=== PATIENT | male | born 1965 | race Caucasian/White ===

== ENCOUNTER 2018-02-13 14:05 | Emergency (ER) | payer BC, OTHER ==
[~2018-02-13] VITALS: Ht 190.5 cm; Wt 89.1 kg
[2018-02-13 14:11] VITALS: TEMP 36.9; Ht 190.5 cm; Wt 89.1 kg
[2018-02-13] MEDS ORDERED: VARE1PAK15 PO (14:24)
[2018-02-13] MEDS ORDERED: LEVO50TA6 PO (14:24)
--- NOTE | 2018-02-13 14:37 | EMERGENCY ROOM VISIT NOTE ---
History Report prepared by Julius: Dylon Rogers Under the Supervision of: Dr. Eleno Wilson M.D. First contact with patient: 14:26 Chief Complaint: OTHER COMPLAINT Stated Complaint: PAIN IN RIGHT SIDE History of Present Illness The patient is a 52 year old male who presents to the Emergency Room with complaints of constant right chest and back pain beginning today. The patient states that he was moving house furniture today when he started feeling pain. He notes that he is also experiencing pain in his right upper back and right flank. He reports that his pain worsens when he takes a deep breath and when he moves. He denies any falls and states that none of the furniture fell on him. The patient notes that he has problems with his thyroid. Source of History: patient Onset: today Position: chest (right) Timing: constant Modifying Factors (Worsening): breathing (deep breathing), movement Associated Symptoms: + back pain (right upper back ) Note: The patient also complains of right flank pain. Review of Systems See HPI for pertinent positives and negatives. A total of ten systems were reviewed and were otherwise negative. Past Medical & Surgical Medical Problems: (1) HNP (herniated nucleus pulposus) (2) Tobacco use disorder Family History FH: diabetes mellitus FH: seizures Social History Smoking Status: Current Every Day Smoker Alcohol Use: none Drug Use: none Marital Status: Housing Status: lives with family Occupation Status: employed Current/Historical Medications Scheduled Levothyroxine Sodium (Levothyroxine Sodium), 1 TAB PO DAILY Varenicline Tartrate (Chantix Starting Month Pa), 1 DOSE PO UD Scheduled PRN Cyclobenzaprine Hcl (Flexeril), 5 MG PO TID PRN for Pain Ibuprofen Tab (Motrin), 800 MG PO Q8H PRN for Pain Allergies Coded Allergies: No Known Allergies (Unverified , 07/29/16) Physical Exam Vital Signs Date Time Temp Pulse Resp B/P (MAP) Pulse Ox O2 Delivery O2 Flow Rate FiO2 02/13/18 16:57 62 16 106/65 95 02/13/18 15:54 58 18 99/55 97 Room Air 02/13/18 14:11 36.9 69 18 115/72 95 Room Air Physical Exam Physical Exam GENERAL: He is oriented to person, place, and time. He appears well-developed and well-nourished. He does not appear distressed. HENT: Exam performed. Head: Normocephalic and atraumatic. Right Ear: External ear normal. No mastoid tenderness. Left Ear: External ear normal. No mastoid tenderness. Mouth/Throat: The oropharynx is clear and moist. No trismus in the jaw. No dental abscesses or uvula swelling. No oropharyngeal exudate or tonsillar abscesses. EYES: Conjunctivae and EOM are normal. Pupils are equal, round, and reactive to light. Right eye exhibits no discharge. Left eye exhibits no discharge. No scleral icterus. NECK: Normal range of motion. Neck supple. No JVD present. No spinous process tenderness present. No carotid bruit present. No rigidity. No tracheal deviation and normal range of motion present. No Brudzinski's sign and no Kernig 's sign noted. CV: Normal rate, regular rhythm, normal heart sounds and intact distal pulses. There is no peripheral edema. Palpable radial pulses bue. PULM/CHEST: Effort normal and breath sounds normal. No respiratory distress. No stridor. He has no wheezes. He has no rales. Chest Wall: He exhibits no tenderness. ABD: The abdomen is soft. Bowel sounds are normal. He has no distension. No mass is present. There is no tenderness. There is no rebound, no guarding, no Fleming's sign and no tenderness at McBurney's point. Rovsig negative MUSC/SKEL: Normal range of motion. There is no peripheral edema or deformity. No C T or L spine tenderness, pain on palpation and spasms on palpation reproducing the patient's chief complaint, pain on palpation of right thoracic paraspinous muscle. LYMPH: No cervical adenopathy. NEURO: He is alert and oriented to person, place, and time. He has normal strength. No cranial nerve deficit or sensory deficit. Coordination and gait normal. GCS eye subscore is 4. GCS verbal subscore is 5. GCS motor subscore is 6. Cerebellar tests wnl. SKIN: Skin is warm and dry. He is not diaphoretic. PSYCH: He has a normal mood and affect. His behavior is normal. Judgment and thought content normal. Medical Decision & Procedures ER Provider Diagnostic Interpretation: Radiology results as stated below per my review and radiologist interpretation: TWO VIEW CHEST FINDINGS: PA and lateral chest radiographs are compared to study dated 07/29/2016. The heart is top normal for projection and there is atherosclerotic calcification of the thoracic aorta. The pulmonary vasculature is noncongested. Chronic interstitial thickening is similar to previous. No airspace consolidation or pleural effusion is identified. No pneumothorax is seen. The bony thorax appears intact. IMPRESSION: No acute cardiopulmonary abnormality. Electronically signed by: Tor Hanley M.D. 02/13/2018 3:38 PM ED Course 1431: The patient was evaluated in room C7. A complete history and physical exam was performed. 1651: Vital signs stable x-ray negative. DC with analgesia and muscle relaxer. DISCHARGE - Plan of care discussed with patient and questions answered. The patient was given both verbal and printed discharge instructions. The patient verbalized understanding and ability to comply. The patient is to seek outpatient follow up as noted in the discharge instructions. The patient verbalized understanding and ability to comply. The patient is discharged in stable condition. The patient was instructed to return for worsening symptoms. Medical Decision Vital signs stable x-ray negative. DC with analgesia and muscle relaxer. DISCHARGE - Plan of care discussed with patient and questions answered. The patient was given both verbal and printed discharge instructions. The patient verbalized understanding and ability to comply. The patient is to seek outpatient follow up as noted in the discharge instructions. The patient verbalized understanding and ability to comply. The patient is discharged in stable condition. The patient was instructed to return for worsening symptoms. Blood Pressure Screening Patient's blood pressure: Normal blood pressure Blood pressure disposition: Did not require urgent referral Impression Primary Impression: Back strain Scribe Attestation The scribe's documentation has been prepared under my direction and personally reviewed by me in its entirety. I confirm that the note above accurately reflects all work, treatment, procedures, and medical decision making performed by me. The chart was completed utilizing [employer] Speech voice recognition software. Grammatical errors, random word insertions, pronoun errors, and incomplete sentences are an occasional consequence of this system due to software limitations, ambient noise, and hardware issues. Any formal questions or concerns about the content, text, or information contained within the body of this dictation should be directly addressed to the physician for clarification. Departure Information Dispostion Home / Self-Care Prescriptions Cyclobenzaprine Hcl (FLEXERIL) 5 Mg Tab 5 MG PO TID Y for Pain, #30 TAB PRN Prov: Eleno Wilson M.D. 02/13/18 Ibuprofen Tab (MOTRIN) 800 Mg Tab 800 MG PO Q8H Y for Pain, #30 TAB Prov: Eleno Wilson M.D. 02/13/18 Referrals Vashti Hopkins M.D. (PCP) Forms HOME CARE DOCUMENTATION FORM, IMPORTANT VISIT INFORMATION, WORK / SCHOOL INSTRUCTIONS Patient Instructions [facility] Health Problem Qualifiers Primary Impression: Back strain Encounter type: initial encounter Qualified Codes: S39.012A - Strain of muscle, fascia and tendon of lower back, initial encounter
--- NOTE | 2018-02-13 15:40 | DIAGNOSTIC IMAGING REPORT ---
TWO VIEW CHEST CLINICAL HISTORY: Atypical chest pain. FINDINGS: PA and lateral chest radiographs are compared to study dated 07/29/2016. The heart is top normal for projection and there is atherosclerotic calcification of the thoracic aorta. The pulmonary vasculature is noncongested. Chronic interstitial thickening is similar to previous. No airspace consolidation or pleural effusion is identified. No pneumothorax is seen. The bony thorax appears intact. IMPRESSION: No acute cardiopulmonary abnormality. Electronically signed by: Tor Hanley M.D. 02/13/2018 3:38 PM Dictated Date/Time: 02/13/2018 3:36 PM
[2018-02-13] MEDS ORDERED: IBUP-1451 PO (16:49)
[2018-02-13] MEDS ORDERED: CYCL5TAB PO (16:49)
[2018-02-13 16:57] VITALS: BP 106/65; PULSE 62; O2SAT 95
== END 2018-02-13 16:58 | disposition home or self-care (01) ==
LOC: C.EDB 14:06 → C.EDC 16:58
DX: S39.012A Strain of muscle, fascia and tendon of lower back, initial encounter (principal); R07.9 Chest pain, unspecified; E07.9 Disorder of thyroid, unspecified; Z79.899 Other long term (current) drug therapy; Z82.0 Family history of epilepsy and other diseases of the nervous system; Z83.3 Family history of diabetes mellitus; F17.200 Nicotine dependence, unspecified, uncomplicated; X50.0XXA Overexertion from strenuous movement or load, initial encounter

== ENCOUNTER 2023-10-08 08:22 | Observation (INO) ==
--- OUTSIDE RECORDS SUMMARY | 2023-10-08 08:29 | External Medical Summary | Summary of Care ---
Author Name Unknown Organization [facility] Address [address] [place] [address] Phone [phone] Care Team Providers Care Barrel Raiser Name Role Phone Vashti Hopkins MD Primary Care Provider [phone] Reason for Visit * Reason Comments Physical-Exam Follow Up Encounter Details Date Type Department Care Team Description 06/10/2023 Office Visit General Internal Medicine [facility] [address] [facility] [place], [place] [id number] Vashti Hopkins MD [address] [place] [address] Routine medical exam*; Left foot pain; Hyperlipidemia with target LDL less than 100; 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; HNP (herniated nucleus pulposus), cervical; Atherosclerosis of arteries; Lipoma of head; Neuropathy involving both lower extremities; Pernicious anemia; Syrinx of spinal cord (HCC); Tobacco use disorder; Unilateral inguinal hernia without obstruction or gangrene, recurrence not specified; Pulmonary emphysema, unspecified emphysema type (HCC); Screening PSA (prostate specific antigen); Encounter for HCV screening test for low risk patient Allergies No known active allergiesdocumented as of this encounter (statuses as of 06/10/2023) Medications Medication Sig Dispensed Refills Start Date End Date Status Vitamin B-12 ER 2000 MCG Oral Tablet Extended ReleaseIndication s:Other vitamin B12 deficiency anemia Take by mouth. 2500 mcg 0 07/11/2021 Active Atorvastatin Calcium 20 MG Oral Tablet (Lipitor)Indicati ons:Hyperlipidemi a with target LDL less than 100 Take 1 Tablet (20 mg) by mouth in the morning. 30 Tablet 5 09/23/2022 Active Levothyroxine Sodium 50 MCG Oral Tablet (Levoxyl)Indicati ons:Hypothyroidis m due to Sonia's thyroiditis Take 1 Tablet (50 mcg) by mouth in the morning. (at least 30 min prior to breakfast or other meds). 30 Tablet 5 09/23/2022 Active Baclofen 10 MG Oral Tablet (Lioresal)Indicat ions:Neck pain Take 1 Tablet (10 mg) by mouth in the morning and 1 Tablet (10 mg) before bedtime. 30 Tablet 0 09/26/2022 Active Pantoprazole Sodium 20 MG Oral Tablet Delayed Release (Protonix) Take 1 Tablet by mouth in the morning. 90 Tablet 2 11/27/2022 Active Meloxicam 15 MG Oral Tablet Take 1 Tablet by mouth daily as needed for Pain, Mild or Pain, Moderate. for pain. 30 Tablet 2 12/11/2022 Active Aspirin 81 MG Oral Tablet Chewable Take 1 Tablet by mouth in the morning. with food.. 100 Tablet 5 12/11/2022 Active buPROPion HCl ER (SR) 150 MG Oral Tablet Extended Release 12 Hour (Wellbutrin SR)Indications:To bacco use disorder Take 1 Tablet by mouth in the morning and 1 Tablet before bedtime. 60 Tablet 5 06/10/2023 Active Nicotine 7 MG/24HR Transdermal Patch 24 Hour (Nicoderm CQ)Indications:To bacco use disorder One 7 mg patch daily for 2 weeks; Remove old patch daily; and then stop. 14 Patch 1 06/10/2022 06/10/2023 Discontinue d(Medicatio n List Clean Up) buPROPion HCl ER (SR) 100 MG Oral Tablet Extended Release 12 Hour (Wellbutrin SR)Indications:To bacco use disorder Take 1 Tablet by mouth in the morning and 1 Tablet before bedtime. 60 Tablet 5 12/11/2022 06/10/2023 Discontinue d(Medicatio n/Dose Changed) Hospital, Clinic, or Other Facility Administered Medication Ordered Dose Route Frequency Start Date End Date Status Albuterol Sulfate (Proventil) (2.5 MG/3ML) 0.083% inhalation solution 2.5 mgIndications:Tobacco use disorder,Pulmonary emphysema, unspecified emphysema type (HCC) 2.5 mg NEBULIZER PRN 06/10/2023 06/09/2024 Acti ve albuterol (VENTOLIN HFA/PROVENTIL HFA) inhalerIndications:Toba junior accountant bookkeeper use disorder,Pulmonary emphysema, unspecified emphysema type (HCC) 3 Puff IN PRN 06/10/2023 06/09/2024 Acti ve documented as of this encounter (statuses as of 06/10/2023) Active Problems Problem Noted Date Atherosclerosis of arteries 12/11/2022 Hyperlipidemia with target LDL less than 100 09/22/2022 Lipoma of head 10/11/2021 Pernicious anemia 10/09/2017 Hypothyroidism due to Sonia's thyroi ditis 10/01/2016 Neuropathy involving both lower extremit ies 08/13/2016 Syrinx of spinal cord 03/27/2015 Overview: Small area at the cervicomedullary junction, repeat MRI 3 months, too small to characterize HNP (herniated nucleus pulposus), cervic al 03/05/2015 Tobacco use disorder 06/20/2004 UNILAT INGUINAL HERNIA 12/14/2003 documented as of this encounter (statuses as of 06/10/2023) Resolved Problems Problem Noted Date Resolved Date H/O idiopathic seizure 06/10/2022 3 Overview: Cause now known only 1 time - in 1984 Jerking movements of extremities 04/29/2017 01/26/2018 Dizzy spells 08/13/2016 07/22/2021 documented as of this encounter (statuses as of 06/10/2023) Immunizations Name Administration Dates Next Due PPD 07/01/2017 Pneumococcal Conjugate Vaccine, 20-valent (Prevn ar20) 06/10/2022 TD, Preservative Free 10/11/2021 TDAP (age 11 and older)(Adacel) 08/08/2011 documented as of this encounter Social History Tobacco Use Types Packs/Day Years Used Date Smoking Tobacco: Every Day Cigarettes 1 30 Started: 1987 Smokeless Tobacco: Never Alcohol Use Standard Drinks/Week Comments Yes 0 (1 standard drink = 0.6 oz pur e alcohol) occ beer, rare Food Insecurity Answer Date Recorded Within the past 12 months, y ou worried that your food would run out before you got money to buy more. Never true 12/11/2022 Within the past 12 months, t he food you bought just didn't last and you didn't have money to get more. Never true 12/11/2022 Sex Assigned at Date Recorded Not on file Job Start Date Occupation Industry Not on file Not on file Not on file documented as of this encounter Last Filed Vital Signs Vital Sign Reading Time Taken Comments Blood Pressure 104/62 06/10/2023 8:58 AM EDT Pulse 90 06/10/2023 8:58 AM EDT Temperature 36.7 C (98 F) 06/10/2023 8:58 AM EDT Respiratory Rate - - Oxygen Saturation 92% 06/10/2023 8:58 AM EDT Inhaled Oxygen Concentration - - Weight 89.8 kg (198 lb) 06/10/2023 8:58 AM EDT Height 190.5 cm (6' 3") 06/10/2023 8:58 AM EDT Body Mass Index 24.75 06/10/2023 8:58 AM EDT documented in this encounter Progress Notes * Vashti Hopkins MD - 06/10/2023 9:07 AM EDT SUBJECTIVE: Stephen Tyler is a 57 year old male. Chief Complaint Patient presents with Physical-Exam Follow Up HPI: 57 year oldYOmale with PMH significant for cervical disc prolapse, tobacco abuse, hyperthyroidism status post radioactive ablation presents here for recheck/complete physical Since last seen he has been feeling overall okay Acute issue or concern: -States he has been having problems and pain in his L foot for 1-2 months. Doesn't recall any recent trauma but did hurt when 19 yo but nothing happened until now . It hurts in the bottom of the footin 2 places. Walking makes it worse -still smoking 1 pack a day. Tolerating Wellbutrin feels helping some with mood. Denies shortness or breath or chest pain, some cough which is baseline. Noticed pulse ox 92% today but patient asymptomatic Interim other medical issue : None Fam h/o CAD, DM,PVD,stroke: DM and stroke Significant fam h/o cancer: MGM with breast ca Watching diet : Not really, drinks about 6 cans of soda day the plan of stopping/ reducing Doing regular exercise: Not really beside being active at work and lot of walking Routine labs: Due Routine HM: Reviewed, discussed and recommended, patient declined all shots Being followed by Derm: No Being followed by any other specialist: None Other chronic medical problem: Reviewed and stable Patient Active Problem List Diagnosis Code UNILAT INGUINAL HERNIA K40.90 Tobacco use disorder F17.200 HNP (herniated nucleus pulposus), cervical M50.20 Syrinx of spinal cord (HCC) G95.0 Neuropathy involving both lower extremities G57.93 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 2500 mcg Atorvastatin Calcium 20 MG Oral Tablet (Lipitor) Take 1 Tablet (20 mg) by mouth in the morning.30 Tablet 5 Levothyroxine Sodium 50 MCG Oral Tablet (Levoxyl) Take 1 Tablet (50 mcg) by mouth in the morning. (at least 30 min prior to breakfast or other meds). 30 Tablet 5 Baclofen 10 MG Oral Tablet (Lioresal) Take 1 Tablet (10 mg) by mouth in the morning and 1 Tablet (10 mg) before bedtime. 30 Tablet 0 Pantoprazole Sodium 20 MG Oral Tablet Delayed Release (Protonix) Take 1 Tablet by mouth in the morning. 90 Tablet 2 Meloxicam 15 MG Oral Tablet Take 1 Tablet by mouth daily as needed for Pain, Mild or Pain, Moderate. for pain. 30 Tablet 2 buPROPion HCl ER (SR) 100 MG Oral Tablet Extended Release 12 Hour (Wellbutrin SR) Take 1 Tabletby mouth in the morning and 1 Tablet before bedtime. 60 Tablet 5 Aspirin 81 MG Oral Tablet Chewable Take 1 Tablet by mouth in the morning. with food.. 100 Tablet 5 No current facility-administered medications for this visit. The patient's medication list was reviewed and updated as needed. 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 Comment: janitorid Employer: [employer] [id number] Tobacco Use Smoking status: Every Day Packs/day: 1.00 Years: 30.00 Pack years: 30.00 Types: Cigarettes Start date: 1987 Smokeless tobacco: Never Vaping Use Vaping Use: Former Substance and Sexual Activity Alcohol use: Yes Comment: occ beer, rare Drug use: No Sexual activity: Yes Partners: Female Social Determinants of Health Food Insecurity: No Food Insecurity Worried About Running Out of Food in the Last Year: Never true Ran Out of Food in the Last Year: Never true Review of patient's allergies indicates: No Known Allergies Family History Problem Relation Age of Onset Diabetes Brother Other (information) Grandfather (Maternal) drowing and caused heart attack Stroke Grandfather (Maternal) Cancer Grandmother (Paternal) Breast Diabetes Grandfather (Paternal) Family Status Relation Status Mother Alive Father Alive Sister Alive Brother Alive alcoholic, diabetes Maternal Grandfather at age 78 [place], age Paternal Grandfather Alive diabetes Paternal Grandmother breast cancer Maternal Grandmother Alive Daughter Alive Daughter Alive Son Alive Maternal Grandfather Paternal Grandmother Maternal Grandfather Brother Paternal Grandfather REVIEW OF SYSTEMS: All 10 systems reviewed and negative except mentioned in HPI OBJECTIVE: BP 104/62 | Pulse 90 | Temp 36.7 C (98 F) (Tympanic) | Ht 1.905 m (6' 3") | Wt 89.8 kg (198 lb)| SpO2 92% | BMI 24.75 kg/m | BSA 2.18 m PHYSICAL EXAM: General: alert, healthy, no distress, well nourished and well developed Head: Normocephalic, No masses, lesions, tenderness or abnormalities except small mm subcutaneous mobile firm lesion in anterior part of scalp on right side Eye Exam: PERRLA, EOMI, Conjunctiva are pink and non-injected, sclera clear Ears: External ears normal, Canals clear, TM's Normal Nose: no mucosal erythema, no mucosal edema, no purulent discharge, no septal hematoma Oropharynx: no exudate, no erythema, lips, buccal mucosa, and tongue normal and mucous membranes are moist Neck: supple, no adenopathy, no bruits, thyroid normal size, non-tender, without nodularity Heart: regular rate & rhythm, no murmurs and no gallops Lungs: chest symmetric with normal AP diameter, no chest deformities noted, no chest wall tenderness, lungs clear to auscultation Pulses: radial=2/4, carotid=2/4 w/o bruits, posterior tibial=2/4 Abdomen: abdomen soft, non-tender, normal bowel sounds and no masses or organomegaly Back: No CVA tenderness, no tenderness to percussion or palpation Extremities: no joint deformities, effusion, or inflammation, no edema, no clubbing, no cyanosis, tenderness in sole of left foot proximal to the ball of the big toe and distal to the medial part of the heel Neuro Exam: alert & oriented x 3 with fluent speech, no focal motor/sensory deficits, gait normal. Skin: skin color, texture, turgor are normal and no rashes or significant lesions ASSESSMENT AND PLAN Routine medical exam (Primary) Routine preventive care discussed like - 1.Taking 2-3 serving of dairy product/day, if can't tolerate should take OTC calcium/vit D ( 600 mg/400 IU) twice a day 2.Healthy diet with low carb,low fat and high in fruits and vegetables discussed 3.Regular exercise at least 3/week of 30 min each 4.Wearing suncreen regularly to prevent skin cancer 5.Routine screening tests and vaccines discussed and recommended Left foot pain - XR FOOT 3 OR MORE VIEWS Avoid bare feet walking Use cushioned sleepers at home and insoles in comfortable shoes Rolling feet on iced bottle Mobic for about 1 2 weeks- caution with stomach upset discussed Handout for exercises given Hyperlipidemia with target LDL less than 100 - COMPREHENSIVE METABOLIC PANEL; Future; Expected date: 06/10/2023 - LIPID PANEL WITH DIRECT LDL IF TG IS HIGH; Future; Expected date: 06/10/2023 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 - SPIROMETRY B/A BRONCHODILATOR; Future; Expected date: 07/10/2023 - LUNG VOLUMES (PLETHYSMOGRAPHY); Future; Expected date: 07/10/2023 - DIFFUSION CAPACITY (DLCO); Future; Expected date: 07/10/2023 - Albuterol Sulfate (Proventil) (2.5 MG/3ML) 0.083% inhalation solution 2.5 mg - albuterol (VENTOLIN HFA/PROVENTIL HFA) inhaler Unilateral inguinal hernia without obstruction or gangrene, recurrence not specified Pulmonary emphysema, unspecified emphysema type (HCC) - SPIROMETRY B/A BRONCHODILATOR; Future; Expected date: 07/10/2023 - LUNG VOLUMES (PLETHYSMOGRAPHY); Future; Expected date: 07/10/2023 - DIFFUSION CAPACITY (DLCO); Future; Expected date: 07/10/2023 - Albuterol Sulfate (Proventil) (2.5 MG/3ML) 0.083% inhalation solution 2.5 mg - albuterol (VENTOLIN HFA/PROVENTIL HFA) inhaler Screening PSA (prostate specific antigen) - PSA; Future; Expected date: 06/10/2023 Encounter for HCV screening test for low risk patient - HEPATITIS C ANTIBODY SCREEN WITH PROGRESSION TO HEPATITIS C RNA QUANTITATIVE; Future; Expected date: 06/10/2023 Follow Up: Return in about 6 months (around 12/11/2023) for recheck. | For: recheck Treatment and plan discussed with patient and was given opportunity to ask questions which were answered . Patient verbalized understanding. This note was prepared with the help of fluency and if there is any mis-spelled words , sentences or something which doesn't represent the content of the subject that could be technical error and please refer to the author for clarification. Vashti Hopkins MD 06/10/2023 9:07 AM documented in this encounter Nursing Notes * GUSTAVO Judd - 06/10/2023 8:55 AM EDT Patient presents in office today for a 6 month follow up and CPE. States he has been having problems and pain in his L foot for 1-2 months. Doesn't recall any trauma. documented in this encounter Plan of Treatment Upcoming Encounters Date Type Specialty Care Team Description 08/14/2023 PulmDiagnostic Pulmonary Function [place], [address] [place] [id number] 12/11/2023 Office Visit Internal Medicine Vashti Hopkins MD [address] [facility] [place] [address] Pending Results Name Type Priority Associated Diagnoses Date /Time XR FOOT 3 OR MORE VIEWS Medical Imaging Routine Left foot pain 06/10/2023 9:44 AM EDT Scheduled Orders Name Type Priority Associated Diagnoses Orde r Schedule SPIROMETRY B/A BRONCHODILATOR Procedures Routine Tobacco use disorder Pulmonary emphysema, unspecified emphysema type (HCC) Expected: 07/10/2023, Expires: 07/11/2024 LUNG VOLUMES (PLETHYSMOGRAPHY) Procedures Routine Tobacco use disorder Pulmonary emphysema, unspecified emphysema type (HCC) Expected: 07/10/2023, Expires: 07/11/2024 DIFFUSION CAPACITY (DLCO) Procedures Routine Tobacco use disorder Pulmonary emphysema, unspecified emphysema type (HCC) Expected: 07/10/2023, Expires: 07/11/2024 PSA Lab Routine Screening PSA (prostate specific antigen) Expected: 06/10/2023 (Approximate), Expires: 06/09/2024 COMPREHENSIVE METABOLIC PANEL Lab Routine Hyperlipidemia with target LDL less than 100 Expected: 06/10/2023 (Approximate), Expires: 06/10/2024 LIPID PANEL WITH DIRECT LDL IF TG IS HIGH Lab Routine Hyperlipidemia with target LDL less than 100 Expected: 06/10/2023 (Approximate), Expires: 06/10/2024 TSH Lab Routine 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 Expected: 06/10/2023 (Approximate), Expires: 06/10/2024 HEPATITIS C ANTIBODY SCREEN WITH PROGRESSION TO HEPATITIS C RNA QUANTITATIVE Lab Routine Encounter for HCV screening test for low risk patient Expected: 06/10/2023 (Approximate), Expires: 06/09/2024 Health Maintenance Due Date Last Done Comments Hepatitis B (1 of 3 - 3-dose series) 1967 COVID-19 Vaccine (#1) 03/30/1968 Hepatitis C Screening 1985 Cologuard 2012 Fecal Occult Blood Test 2012 Sigmoidoscopy 2012 Zoster Vaccines (1 of 2) 2017 Influenza Vaccine (FLU shot) (#1) 2023 Depression Screening, Annual for Pts 12 and Over 12/11/2023 12/11/2022 TSH 12/11/2023 12/11/2022, 07/04/2022, 12/11/2021, Additional history exists Colonoscopy 07/18/2025 07/18/2015 Colorectal Cancer Screening 07/18/2025 DTaP,Tdap,and Td Vaccines (3 - Td or Tdap) 10/11/2031 10/11/2021, 08/08/2011 Pneumococcal Vaccine: Pediatrics (0 to 5 Years) and At-Risk Patients (6 to 64 Years) Completed 06/10/2022 LUNG CANCER SCREENING - USE SMARTSET [id number] Completed 07/04/2022 GARDASIL-HPV IMMUNIZATION SERIES Aged Out No longer eligible based on patient's age to complete this topic MENINGOCOCCAL (MENACTRA/MENVEO) Aged Out No longer eligible based on patient's age to complete this topic documented as of this encounter Medical Devices Not on filedocumented as of this encounter Visit Diagnoses Diagnosis Routine medical exam- Primary Routine general medical examination at a health care facility Left foot pain Pain in limb Hyperlipidemia with target LDL less than 100 Other and unspecified hyperlipidemia 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 HNP (herniated nucleus pulposus), cervical Displacement of cervical intervertebral disc without myelopathy Atherosclerosis of arteries Atherosclerosis of other specified arteries Lipoma of head Neuropathy involving both lower extremities Pernicious anemia Syrinx of spinal cord (HCC) Syringomyelia and syringobulbia Tobacco use disorder Unilateral inguinal hernia without obstruction or gangrene, recurrence not specified Pulmonary emphysema, unspecified emphysema type (HCC) Screening PSA (prostate specific antigen) Special screening for malignant neoplasm of prostate Encounter for HCV screening test for low risk patient documented in this encounter Care Teams Barrel Raiser Relationship Specialty Start Date End Date Vashti Hopkins MD [address] [facility] [place] [address] PCP - General Internal Medicine 08/13/16 documented as of this encounter
--- OUTSIDE RECORDS SUMMARY | 2023-10-08 08:29 | External Medical Summary | Summary of Care ---
Author Name Unknown Organization [facility] Address [address] [place] [address] Phone [phone] Care Team Providers Care Neon Molder Name Role Phone Vashti Hopkins MD Primary Care Provider [phone] Reason for Visit * Reason Onset Date Comments Pulmonary Function Test 07/10/2023 Called p t to offer earlier appointment. Pt is currently scheduled 08/14/23 Encounter Details Date Type Department Care Team Description 07/10/2023 Telephone General Internal Medicine [facility] [address] [facility] [place], [place] [id number] Vashti Hopkins MD [address] [facility], [place] [id number] Pulmonary Function Test (Called pt to offe... Allergies No known active allergiesdocumented as of this encounter (statuses as of 07/13/2023) Medications Medication Sig Dispensed Refills Start Date End Date Status Vitamin B-12 ER 2000 MCG Oral Tablet Extended ReleaseIndications:O ther vitamin B12 deficiency anemia Take by mouth. 2500 mcg 0 07/11/2021 Active Atorvastatin Calcium 20 MG Oral Tablet (Lipitor)Indications :Hyperlipidemia with target LDL less than 100 Take 1 Tablet (20 mg) by mouth in the morning. 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 (at least 30 min prior to breakfast or other meds). 30 Tablet 5 09/23/2022 Active Baclofen 10 MG Oral Tablet (Lioresal)Indication s:Neck pain Take 1 Tablet (10 mg) by [...] Oral Tablet Extended Release 12 Hour (Wellbutrin SR)Indications:Tobac co use disorder Take 1 Tablet by mouth in the morning and 1 Tablet before bedtime. 60 Tablet 5 06/10/2023 Active Hospital, Clinic, or Other Facility Administered Medication Ordered Dose Route Frequency Start Date End Date Status Albuterol Sulfate (Proventil) (2.5 MG/3ML) 0.083% inhalation solution 2.5 mgIndications:Tobacco use disorder,Pulmonary emphysema, unspecified emphysema type (HCC) 2.5 mg NEBULIZER PRN 06/10/2023 06/09/2024 Acti ve albuterol (VENTOLIN HFA/PROVENTIL HFA) inhalerIndications:Toba associate account director use disorder,Pulmonary emphysema, unspecified emphysema type (HCC) 3 Puff IN PRN 06/10/2023 06/09/2024 Acti ve documented as of this encounter (statuses as of 07/13/2023) Active Problems Problem Noted Date Atherosclerosis of [...] as of this encounter (statuses as of 07/13/2023) Resolved Problems Problem Noted Date Resolved Date H/O idiopathic seizure 06/10/2022 Overview: Cause now known only 1 time - in 1983 Jerking movements of extremities 04/29/2017 01/26/2018 Dizzy spells 08/13/2016 07/22/2021 documented as of this encounter (statuses as of 07/13/2023) Immunizations Name Administration Dates Next Due PPD [...] on file documented as of this encounter Miscellaneous Notes * Telephone Encounter - Alix Zamarripa RRT - 07/10/2023 3:39 PM EDT Called pt to offer earlier appointment. Pt is currently scheduled 08/14/23 documented in this encounter Plan of Treatment Upcoming Encounters Date Type Specialty Care Team Description 08/14/2023 PulmDiagnostic Pulmonary Function [place] [address] [id number] 12/11/2023 Office Visit Internal Medicine Vashti Hopkins MD [address] [place] [address] Health Maintenance Due Date Last Done Comments Hepatitis B (1 of 3 - 3-dose series) 1967 COVID-19 Vaccine (#1) 03/30/1968 Hepatitis C Screening 1985 Cologuard 2012 Fecal Occult Blood Test 2012 Sigmoidoscopy 2012 Zoster Vaccines (1 of 2) 2017 Influenza Vaccine (FLU shot) (#1) 2023 Depression Screening, Annual for Pts 12 and Over 12/11/2023 12/11/2022 TSH 12/11/2023 12/11/2022, 05/17, 12/11/2021, Additional history exists Colonoscopy 07/18/2025 07/18/2015 Colorectal Cancer Screening 07/18/2025 DTaP,Tdap,and Td Vaccines (3 - Td or Tdap) 10/11/2031 10/11/2021, 08/08/2011 Pneumococcal Vaccine: Pediatrics (0 to 5 Years) and At-Risk Patients (6 to 64 Years) Completed 06/10/2022 LUNG CANCER SCREENING - USE SMARTSET [id number] Completed 07/04/2022 GARDASIL-HPV IMMUNIZATION SERIES Aged Out No longer eligible based on patient's age to complete this topic MENINGOCOCCAL (MENACTRA/MENVEO) Aged Out No longer eligible based on patient's age to complete this topic documented as of this encounter Medical Devices Not on filedocumented as of this encounter Care Teams Neon Molder Relationship Specialty Start Date End Date Vashti Hopkins MD [address] [place] [address] PCP - General Internal Medicine 08/13/16 documented as of this encounter
[2023-10-08] MEDS ORDERED: SODIUM CHLORIDE 0.9% 1,000 ML IV ONE ×2 (08:38→11:55)
[2023-10-08] MEDS ORDERED: ONDANSETRON INJ 2 MG/ML 2 ML VIAL IV STA ×2 (08:38→13:09)
[2023-10-08] MEDS ORDERED: KETOROLAC TROMETHAMINE 15 MG/ML VIAL IV STA (08:38)
--- NOTE | 2023-10-08 08:45 | Emergency Department Note ---
History of Present Illness General Chief complaint: Abdominal Pain Stated complaint: abdominal pain Time Seen by Provider: 10/08/23 08:31 Source: patient, RN notes reviewed and old records reviewed Mode of arrival: ambulatory Limitations: no limitations History of Present Illness Maximum Pain Intensity: 4 This patient is a 58-year-old male comes in with abdominal pain. He said he woke up between 1:00 and 3:00 in the morning it is diffuse and all over he cannot pinpoint 1 area versus another. He said some mild nausea but no vomiting. He denies any bladder symptoms . no dysuria or hematuria. Denies any bowel symptoms with normal bowel movements without blood or melena. No trauma or injury or overuse. Denies chest pain shortness of breath or cough. No sick contacts. No unusual food. No history of similar. No abdominal surgeries. No back pain or testicular pain or swelling in his groin/testicles. Home Medications Medication Instructions Recorded Confirmed Type atorvastatin 20 mg tablet 20 mg PO DAILY 09/22/22 10/08/23 History cyanocobalamin (vitamin B-12) 2,000 mcg PO DAILY 09/22/22 10/08/23 History 2,000 mcg tablet,extended release (Vitamin B-12 ER) levothyroxine 50 mcg tablet 50 mcg PO DAILYBB 09/22/22 10/08/23 History (Euthyrox) meloxicam 15 mg tablet 15 mg PO DAILY 09/22/22 10/08/23 History nicotine 7 mg/24 hr daily 7 mg topical DIRECTED PRN 09/22/22 10/08/23 History transdermal patch SMOKING SESSATION Allergies Allergy/AdvReac Type Severity Reaction Status Date / Time No Known Allergies Allergy Verified 10/08/23 12:57 Past Med/Surg History Medical History (Updated 10/08/23 @ 12:26 by Trevon Salcedo MD) HNP (herniated nucleus pulposus) Tobacco use disorder Surgical History No pertinent past surgical history Social History Smoking Status: Current every day smoker Tobacco Type: Cigarettes Preferred Language: Palestinian Feels Safe at Home: Yes Immunizations: 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 He lives locally in [place]. This not use drugs or alcohol. He smokes about a pack a day Review of Systems A total of 10 systems reviewed and were otherwise negative Physical Exam Vital Signs Vital Signs - 24 hr 10/08/23 08:24 10/08/23 09:03 10/08/23 10:03 Temperature 36.4 C L Temperature Source Temporal Artery Scan Pulse Rate 74 64 63 Pulse Rhythm Regular Respiratory Rate 20 12 12 Blood Pressure 132/75 122/78 Blood Pressure Mean 94 92 Pulse Oximetry 99 96 96 Oxygen Delivery Method Room Air Room Air Room Air Sepsis Recent Fever Within 48 Hours No Sepsis New/Unexplained Change in Mental Status N/A Sepsis Action Taken by Nursing No Action Required 10/08/23 12:17 Temperature Temperature Source Pulse Rate 81 Pulse Rhythm Respiratory Rate 12 Blood Pressure 135/85 Blood Pressure Mean 101 Pulse Oximetry 95 Oxygen Delivery Method Room Air Sepsis Recent Fever Within 48 Hours Sepsis New/Unexplained Change in Mental Status Sepsis Action Taken by Nursing General: Well developed well nourished middle-age male who appears in no acute distress, breathing comfortably on room air. Normal speech HEENT: Normal cephalic atraumatic. Pupils are equal round and reactive to light. Extraocular movements are intact. Oropharynx is pink with moist mucous membranes. No swelling of the mouth lips or tongue. Neck: Supple with a midline trachea. No meningeal signs or stiffness, no JVD or bruits. No Stridor. Chest: Clear to auscultation bilaterally. No wheezes or rhonchi. No increased work of breathing. Heart: Regular rate and rhythm without murmurs or gallops. Abdomen: Soft nondistended. He is moderately diffusely tender. It seems like he is mostly tender in the epigastric/central abdomen as well as the lower abdomen bilaterally. Without rebound guarding or rigidity. Extremities: No cyanosis clubbing or edema. No calf tenderness or assymetry Spine/Back. Non tender to palpation. No CVA tenderness Skin: Good turgor without rashes. Neurologic exam: Cranial nerves two through 12 are intact. Motor and sensation are intact and symmetrical throughout. Course Administered Medications Discontinued Medications Sodium Chloride (Nss) 1,000 mls @ 999 mls/hr IV .Q1H1M ONE Stop: 10/08/23 09:38 Last Infusion: 10/08/23 09:52 Dose: Infused Documented By: Admin: 10/08/23 08:57 Dose: 999 mls/hr Documented By: TIMOTHY Sodium Chloride (Nss) 1,000 mls @ 999 mls/hr IV .Q1H1M ONE Stop: 10/08/23 12:55 Last Infusion: 10/08/23 13:12 Dose: Infused Documented By: Admin: 10/08/23 12:08 Dose: 999 mls/hr Documented By: TIMOTHY Ioversol (Optiray 320 500ml) 90 ml IV ONCE ONE Stop: 10/08/23 10:31 Last Admin: 10/08/23 10:31 Dose: 90 ml Documented By: JOSH Ketorolac Tromethamine (Ketorolac Tromethamine 15 Mg/Ml Vial) 10 mg IV NOW STA Stop: 10/08/23 08:39 Last Admin: 10/08/23 08:57 Dose: 10 mg Documented By: TIMOTHY Morphine Sulfate (Morphine Sulfate 2 Mg/Ml Carp) 2 mg IV NOW STA Stop: 10/08/23 13:10 Last Admin: 10/08/23 13:24 Dose: 2 mg Documented By: TIMOTHY Ondansetron HCl (Ondansetron Inj 2 Mg/Ml 2 Ml Vial) 4 mg IV NOW STA Stop: 10/08/23 08:39 Last Admin: 10/08/23 08:57 Dose: 4 mg Documented By: TIMOTHY Ondansetron HCl (Ondansetron Inj 2 Mg/Ml 2 Ml Vial) 4 mg IV NOW STA Stop: 10/08/23 13:10 Last Admin: 10/08/23 13:24 Dose: 4 mg Documented By: TIMOTHY Medical Decision Making Differential Diagnosis Intra-abdominal process, infection, appendicitis, diverticulitis, colitis, UTI, kidney stone, cardiac disease, sepsis, musculoskeletal, bowel obstruction Medical Records Attestation: I reviewed the patient's medical records. Home Medications Current Medication List: was personally reviewed by me Laboratory Data Attestation: I reviewed the patient's lab results. 10/08/23 08:48 10/08/23 08:48 Lab Results 10/08/23 10/08/23 Range/Units 08:48 10:47 WBC 9.17 (4.8-10.8) K/ul RBC 4.71 (4.70-6.10) M/uL Hgb 15.6 (14.0-18.0) g/dl Hct 44.6 (42.0-52.0) % MCV 94.7 (80.0-100.0) fL MCH 33.1 (25.0-34.0) pg MCHC 35.0 (32.0-36.0) g/dL RDW Std Deviation 43.2 (36.4-46.3) fL RDW Coeff of Geraldine 12.2 (11.5-14.5) % Plt Count 187 (130-400) K/uL MPV 9.4 (9.4-12.4) fL Immature Gran % (Auto) 0.3 % Neut % (Auto) 72.2 % Lymph % (Auto) 18.9 % Pickett % (Auto) 6.8 % Eos % (Auto) 1.3 % Baso % (Auto) 0.5 % Neut # (Auto) 6.62 H (1.40-6.50) K/uL Lymph # (Auto) 1.73 (1.20-3.40) K/uL Pickett # (Auto) 0.62 H (0.11-0.59) K/uL Eos # (Auto) 0.12 (0.00-0.50) K/uL Baso # (Auto) 0.05 (0.00-0.20) K/uL Immature Gran # (Auto) 0.03 (0.01-0.20) K/uL Sodium 140 (136-145) mmol/L Potassium 4.4 (3.5-5.1) mmol/L Chloride 108 H (98-107) mmol/L Carbon Dioxide 28 (21-32) mmol/L Anion Gap 4 (3-11) BUN 11 (6-23) mg/dl Creatinine 0.86 (0.6-1.4) mg/dl Est Cr Clr Drug Dosing 114.6 ml/min Est GFR ( Amer) 112.4 ml/min Est GFR (Non-Af Amer) 96.9 ml/min BUN/Creatinine Ratio 12.8 (10-20) Glucose 122 H (70-99(Fasting)) mg/dl Calcium 9.6 (8.6-10.3) mg/dl Phosphorus 2.3 L (2.5-4.9) mg/dl Magnesium 2.2 (1.7-2.4) mg/dl Total Bilirubin 0.7 (0.2-1.0) mg/dl AST 14 (13-39) U/L ALT 10 (7-52) U/L Alkaline Phosphatase 61 (34-104) U/L Troponin I High Sens 3.4 (0-20) pg/ml Total Protein 6.8 (6.0-8.3) gm/dl Albumin 3.9 (3.4-5.0) gm/dl Globulin 2.9 (2.5-4.0) gm/dl Albumin/Globulin Ratio 1.3 (0.9-2) Lipase 15 (11-82) U/L Urine Color Yellow Urine Appearance Clear (Clear) Urine pH 7.0 (4.5-7.5) Ur Specific [place] 1.024 (1.000-1.030) Urine Protein Negative (Negative) Urine Glucose (UA) Negative (Negative) Urine Ketones Negative (Negative) Urine Blood Negative (Negative) Urine Nitrite Negative (Negative) Urine Bilirubin Negative (Negative) Urine Urobilinogen Negative (Negative) Ur Leukocyte Esterase Negative (Negative) Imaging Data Attestation: I personally reviewed and interpreted this imaging study as follows: My Impression: CT of the abdomen and pelvis with IV contrast-on my independent interpretationthere are some dilated loops of small bowel. Radiologist's Impression: Abdomen/Pelvis CT 10/08/23 08:38 CT abd pelvis IV con only CLINICAL HISTORY: abd pain TECHNIQUE: Helical axial images of the abdomen and pelvis were obtained and displayed. Automated dose lowering techniques and/or adjustment according to patient size were utilized for this exam. This exam was performed with intravenous contrast. CT DOSE: 1150.65 mGy.cm COMPARISON: Comparison is made to CT abdomen pelvis 09/22/2022 FINDINGS: Lower chest: Bibasilar atelectasis versus scarring is seen. Liver: Subcentimeter hypodensities in the liver are too small to characterize. Gallbladder and biliary tree: No calcified gallstones. Normal caliber wall. No intra- or extrahepatic biliary ductal dilation. Pancreas: Unremarkable, no focal lesions. Spleen: Splenule is incidentally noted. Adrenals: Unremarkable. Kidneys and ureters: Nonobstructive nephrolithiasis is seen. Bladder: Unremarkable. Reproductive organs: Prostatic calcifications are seen which may represent prior hemorrhage or granulomatous disease. Bowel: Diverticulosis is seen without diverticulitis. The appendix is normal. Multiple distended loops of jejunum measuring up to 38 mm in diameter. No sharp transition point is seen. The colon is not decompressed. Lymph nodes Retroperitoneal: Unremarkable. Pelvic: Unremarkable. Mesenteric: Unremarkable. Peritoneum: Normal. Vessels: Atherosclerotic calcifications are seen. Again noted is U-shaped configuration of the celiac axis without severe stenosis. Abdominal wall: Unremarkable. Bones: Unremarkable. IMPRESSION: 1. Findings are compatible with small bowel obstruction of the jejunum. No closed-loop obstruction is seen. 2. Diverticulosis without diverticulitis. ACT 112: Negative or not required by law. Electronically signed by: Alexis Wakefield M.D. 10/08/2023 11:43 AM ECG Data Attestation: I personally reviewed and interpreted this ECG as follows: Indication: + abdominal pain Rate (beats per minute): 63 Rhythm: + normal sinus ECG Intervals/blocks: + Normal QRS, + Normal QT and + Normal MO ECG [place]: + Normal ECG ST segments: + Normal ST segments ECG Findings: no PACs or no PVCs Comparison ECG Date: from (09/22/22) [facility] Narrative This patient comes in as described above. He was placed in room C8. He has diffuse abdominal pain. He is afebrile with stable vital signs there is no trauma he is no surgical history. IV access was established and he was hydrated 1 L IV normal saline bolus he is driving. He was given Toradol 10 mg IV and Zofran 4 mg IV. Multiple blood testing was obtained as well as urinalysis and culture I also ordered a CAT scan of his abdomen. EKG was obtained. His EKG shows no ischemic changes or ectopy. His labs are unremarkable there is no elevation white count or fever to suggest infection. There is no significant electrolyte or metabolic abnormality. There is nothing to suggest liver, gallbladder, or pancreas disease. CAT scan was obtained and appears to show small bowel obstruction of the jejunum. In light of this, I did consult Dr. Rocha and talked him at length on telephone and he said that he will see the patient in the hospital but asked the patient to be admitted by the medical service. I did call and discussed the case at length with the [facility] hospitalist and the patient will be admitted for further treatment evaluation he has received additional hydration in the ED. Impression & Plan SBO (small bowel obstruction), Abdominal pain, Nausea Discharge Plan Visit Data Chief Complaint: Abdominal Pain Stated Complaint: abdominal pain ED Provider: Trevon Salcedo Discharge Problem: SBO (small bowel obstruction), Abdominal pain, Nausea Forms Stand Alone Forms: My [facility] Prescriptions Prescriptions: No Action atorvastatin 20 mg tablet 20 mg PO DAILY Rx Instructions: LAST FILLED 05/09/22 FOR 30 DAYS/30 TABS. meloxicam 15 mg tablet 15 mg PO DAILY Rx Instructions: LAST FILLED 06/10/22 FOR 30 DAYS/30 TABS. levothyroxine [Euthyrox] 50 mcg tablet 50 mcg PO DAILYBB Rx Instructions: LAST FILLED 03/30/22 FOR 30 DAYS/30 TABS. cyanocobalamin (vitamin B-12) [Vitamin B-12] 2,000 mcg Tablet Extended Release 2,000 mcg PO DAILY Rx Instructions: OTC nicotine 7 mg/24 hr patch 24 hour 7 mg topical DIRECTED PRN (Reason: SMOKING SESSATION) Rx Instructions: [facility]--REPORTS NOT TAKING. Referrals Referrals: Vashti Hopkins MD [Primary Care Provider] - Discharge Problem: Abdominal pain Qualifiers: Abdominal location: generalized Qualified Code(s): R10.84 - Generalized abdominal pain
[2023-10-08 09:17] LABS: Basophils # (auto) 0.05 K/uL (0.00-0.20); Basophils % (auto) 0.5 %; Eosinophils # (auto) 0.12 K/uL (0.00-0.50); Eosinophils % (auto) 1.3 %; Hematocrit (blood only) 44.6 % (42.0-52.0); Hemoglobin 15.6 g/dl (14.0-18.0); Immature Granulocytes # (auto) 0.03 K/uL (0.01-0.20); Immature Granulocytes % (auto) 0.3 %; Lymphocytes # (auto) 1.73 K/uL (1.20-3.40); Lymphocytes % (auto) 18.9 %; Mean Corpuscular Hemoglobin 33.1 pg (25.0-34.0); Mean Corpuscular Volume 94.7 fL (80.0-100.0); Mean Platelet Volume 9.4 fL (9.4-12.4); Monocytes # (auto) 0.62 K/uL (0.11-0.59); Monocytes % (auto) 6.8 %; Neutrophils # (auto) 6.62 K/uL (1.40-6.50); Neutrophils % (auto) 72.2 %; Platelet Count 187 K/uL (130-400); RDW Coefficient of Variation 12.2 % (11.5-14.5); RDW Standard Deviation 43.2 fL (36.4-46.3); Red Blood Count 4.71 M/uL (4.70-6.10); White Blood Count 9.17 K/ul (4.8-10.8)
[2023-10-08 09:34] LABS: Albumin Globulin Ratio 1.3 (0.9-2); Albumin Level 3.9 gm/dl (3.4-5.0); BUN Creatinine Ratio 12.8 (10-20); Bilirubin,Total 0.7 mg/dl (0.2-1.0); Calcium 9.6 mg/dl (8.6-10.3); Creatinine Clr Calc Pharmacy 114.6 ml/min; Est GFR (African American) 112.4 ml/min; Est GFR (Non-African American) 96.9 ml/min; Globulin 2.9 gm/dl (2.5-4.0); Potassium 4.4 mmol/L (3.5-5.1); Total Protein 6.8 gm/dl (6.0-8.3)
[2023-10-08 09:39] LABS: Troponin I High Sensitivity 3.4 pg/ml (0-20)
[2023-10-08] MEDS ORDERED: OPTIRAY 320 500ml IV ONE (10:30)
[2023-10-08 11:01] LABS: Appearance Urine Clear (Clear); Bilirubin Urine Negative (Negative); Blood Urine Negative (Negative); Color Urine Yellow; Glucose Urine UA Negative (Negative); Ketones Urine Negative (Negative); Leukocyte Esterase Urine Negative (Negative); Nitrite Urine Negative (Negative); Protein Urine Negative (Negative); Specific Gravity Urine 1.024 (1.000-1.030); Urobilinogen Urine Negative (Negative)
--- NOTE | 2023-10-08 11:44 | CT Scan Report ---
CT abd pelvis IV con only CLINICAL HISTORY: abd pain TECHNIQUE: Helical axial images of the abdomen and pelvis were obtained and displayed. Automated dose lowering techniques and/or adjustment according to patient size were utilized for this exam. This e xam was performed with intravenous contrast. CT DOSE: 1150.65 mGy.cm COMPARISON: Comparison is made to CT abdomen pelvis 09/22/2022 FINDINGS: Lower chest: Bibasilar atelectasis versus scarring is seen. Liver: Subcentimeter hypodensities in the liver are too small to characterize. Gallbladder and biliary tree: No calcified gallstones. Normal caliber wall. No intra- or extrahepatic biliary ductal dilation. Pancreas: Unremarkable, no focal lesions. Spleen: Splenule is incidentally noted. Adrenals: Unremarkable. Kidneys and ureters: Nonobstructive nephrolithiasis is seen. Bladder: Unremarkable. Reproductive organs: Prostatic calcifications are seen which may represent prior hemorrhage or granul omatous disease. Bowel: Diverticulosis is seen without diverticulitis. The appendix is normal. Multiple distended loop s of jejunum measuring up to 38 mm in diameter. No sharp transition point is seen. The colon is not d ecompressed. Lymph nodes Retroperitoneal: Unremarkable. Pelvic: Unremarkable. Mesenteric: Unremarkable. Peritoneum: Normal. Vessels: Atherosclerotic calcifications are seen. Again noted is U-shaped configuration of the celiac axis without severe stenosis. Abdominal wall: Unremarkable. Bones: Unremarkable. IMPRESSION: 1. Findings are compatible with small bowel obstruction of the jejunum. No closed-loop obstruction i s seen. 2. Diverticulosis without diverticulitis. ACT 112: Negative or not required by law. Electronically signed by: Alexis Wakefield M.D. 10/08/2023 11:43 AM
--- NOTE | 2023-10-08 12:38 | History & Physical Report ---
Date of Service October 08, 2023 Assessment & Plan (1) SBO (small bowel obstruction): (2) Abdominal pain: Plan: Pt presents with abdominal pain, nausea CT abd/pelvis 1. Findings are compatible with small bowel obstruction of the jejunum. No closed-loop obstruction is seen. 2. Diverticulosis without diverticulitis. Pt has no hx of abd. surgery Gen surgery discussed with ED - recommend admission Gen surgery consulted for further recommendations In ED pt received IV NS, IV toradol, and zofran Admit to med/surg Cont. to closely monitor NPO cont. IVF, monitor and replete electrolytes Pain control, antiemetics Tobacco use d/o - nicotine patch Hypothyroidism home levothyroxine HLD - resume home statin when able to take PO Atherosclerosis home ASA History of Present Illness Chief Complaint: abd. 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 Reports that he felt well yesterday, last meal had around 8 PM when he had a cheeseburger and fries. He reports feeling well after dinner. He woke up however with abdominal pain and nausea this morning. He went to the bathroom and had a normal bowel movement this morning. However he did not feel any better, and continued to have sharp abdominal pain, central right upper and lower quadrants. Denies any vomiting. Denies any diarrhea, or blood in the stool. In the ED, patient was found to have possible small bowel obstruction and ED provider discussed with general surgery. They recommend medical management for now. Patient is a current smoker, smokes about a pack a day, denies any alcohol use. Patient denies having any surgeries in the past. Denies any fevers chills chest pain shortness of breath. Family history -father with heart disease, brother with diabetes. Both parents are still alive. Allergies Allergy/AdvReac Type Severity Reaction Status Date / Time No Known Allergies Allergy Verified 10/08/23 12:57 Home Medications Medication Instructions Recorded Confirmed Type atorvastatin 20 mg tablet 20 mg PO DAILY 09/22/22 10/08/23 History cyanocobalamin (vitamin B-12) 2,000 mcg PO DAILY 09/22/22 10/08/23 History 2,000 mcg tablet,extended release (Vitamin B-12 ER) levothyroxine 50 mcg tablet 50 mcg PO DAILYBB 09/22/22 10/08/23 History (Euthyrox) meloxicam 15 mg tablet 15 mg PO DAILY 09/22/22 10/08/23 History nicotine 7 mg/24 hr daily 7 mg topical DIRECTED PRN 09/22/22 10/08/23 History transdermal patch SMOKING SESSATION Past Med/Surg History Medical History HNP (herniated nucleus pulposus) Tobacco use disorder Surgical History No pertinent past surgical history Family History (Updated 10/08/23 @ 16:59 by Kade Maharaj MD) Father Heart disease Brother Diabetes Social History Smoking Status: Heavy tobacco smoker Tobacco Type: Cigarettes Hx Alcohol Use: No Hx Substance Use: No Preferred Language: Icelandic Communication Ability: Effective Outbound Sales Professional Required: No Beliefs That Will Affect Care: None Current Living Situation: Spouse Feels Safe at Home: Yes Safety Concerns: Feels Safe At This Time Assistive Devices: Denture - Upper, Denture - Lower and Glasses Review of Systems Review of Systems: All systems reviewed & are unremarkable except as noted in Subjective Physical Exam Constitutional: WD/WN, vitals as above Eyes: PERRL, conjunctivae normal, anicteric sclerae ENMT: external ear and nose normal, oropharynx normal Neck: trachea midline Respiratory: normal respiratory effort, lungs clear to auscultation Cardiovascular: RRR, no murmur, no edema Chest (Breasts): Chest: normal inspection of chest Gastrointestinal (Abdomen): Inspection/Auscultation: abdomen normal to inspection Percussion/Palpation: + abdomen tender (right upper and lower quadrant) and abdomen soft; no guarding and abdomen not rigid Musculoskeletal: no cyanosis or clubbing, extremities motor strength 5/5 Skin: no rashes, warm and dry Neurologic: PERRL, EOMI, accommodation nl, no face palsy, no dysarthria Results & Data Results & Data Vital Signs (Past 12 Hours) Vital Signs Temp Pulse Resp BP Pulse Ox O2 Del Method 10/08/23 12:17 81 12 135/85 95 Room Air 10/08/23 10:03 63 12 122/78 96 Room Air 10/08/23 09:03 64 12 96 Room Air 10/08/23 08:24 36.4 C L 74 20 132/75 99 Room Air Laboratory Results 10/08/23 10/08/23 Range/Units 10:47 08:48 WBC 9.17 (4.8-10.8) K/ul RBC 4.71 (4.70-6.10) M/uL Hgb 15.6 (14.0-18.0) g/dl Hct 44.6 (42.0-52.0) % MCV 94.7 (80.0-100.0) fL MCH 33.1 (25.0-34.0) pg MCHC 35.0 (32.0-36.0) g/dL RDW Std Deviation 43.2 (36.4-46.3) fL RDW Coeff of Geraldine 12.2 (11.5-14.5) % Plt Count 187 (130-400) K/uL MPV 9.4 (9.4-12.4) fL Immature Gran % (Auto) 0.3 % Neut % (Auto) 72.2 % Lymph % (Auto) 18.9 % Drew % (Auto) 6.8 % Eos % (Auto) 1.3 % Baso % (Auto) 0.5 % Neut # (Auto) 6.62 H (1.40-6.50) K/uL Lymph # (Auto) 1.73 (1.20-3.40) K/uL Drew # (Auto) 0.62 H (0.11-0.59) K/uL Eos # (Auto) 0.12 (0.00-0.50) K/uL Baso # (Auto) 0.05 (0.00-0.20) K/uL Immature Gran # (Auto) 0.03 (0.01-0.20) K/uL Sodium 140 (136-145) mmol/L Potassium 4.4 (3.5-5.1) mmol/L Chloride 108 H (98-107) mmol/L Carbon Dioxide 28 (21-32) mmol/L Anion Gap 4 (3-11) BUN 11 (6-23) mg/dl Creatinine 0.86 (0.6-1.4) mg/dl Est Cr Clr Drug Dosing 114.6 ml/min Est GFR ( Amer) 112.4 ml/min Est GFR (Non-Af Amer) 96.9 ml/min BUN/Creatinine Ratio 12.8 (10-20) Glucose 122 H (70-99(Fasting)) mg/dl Calcium 9.6 (8.6-10.3) mg/dl Phosphorus Pending Magnesium Pending Total Bilirubin 0.7 (0.2-1.0) mg/dl AST 14 (13-39) U/L ALT 10 (7-52) U/L Alkaline Phosphatase 61 (34-104) U/L Troponin I High Sens 3.4 (0-20) pg/ml Total Protein 6.8 (6.0-8.3) gm/dl Albumin 3.9 (3.4-5.0) gm/dl Globulin 2.9 (2.5-4.0) gm/dl Albumin/Globulin Ratio 1.3 (0.9-2) Lipase 15 (11-82) U/L Urine Color Yellow Urine Appearance Clear (Clear) Urine pH 7.0 (4.5-7.5) Ur Specific [place] 1.024 (1.000-1.030) Urine Protein Negative (Negative) Urine Glucose (UA) Negative (Negative) Urine Ketones Negative (Negative) Urine Blood Negative (Negative) Urine Nitrite Negative (Negative) Urine Bilirubin Negative (Negative) Urine Urobilinogen Negative (Negative) Ur Leukocyte Esterase Negative (Negative) Diagnostic Findings CT abdomen/pelvis FINDINGS: Lower chest: Bibasilar atelectasis versus scarring is seen. Liver: Subcentimeter hypodensities in the liver are too small to characterize. Gallbladder and biliary tree: No calcified gallstones. Normal caliber wall. No intra- or extrahepatic biliary ductal dilation. Pancreas: Unremarkable, no focal lesions. Spleen: Splenule is incidentally noted. Adrenals: Unremarkable. Kidneys and ureters: Nonobstructive nephrolithiasis is seen. Bladder: Unremarkable. Reproductive organs: Prostatic calcifications are seen which may represent prior hemorrhage or granulomatous disease. Bowel: Diverticulosis is seen without diverticulitis. The appendix is normal. Multiple distended loops of jejunum measuring up to 38 mm in diameter. No sharp transition point is seen. The colon is not decompressed. Lymph nodes Retroperitoneal: Unremarkable. Pelvic: Unremarkable. Mesenteric: Unremarkable. Peritoneum: Normal. Vessels: Atherosclerotic calcifications are seen. Again noted is U-shaped configuration of the celiac axis without severe stenosis. Abdominal wall: Unremarkable. Bones: Unremarkable. IMPRESSION: 1. Findings are compatible with small bowel obstruction of the jejunum. No closed-loop obstruction is seen. 2. Diverticulosis without diverticulitis. (2) Abdominal pain Abdominal location: generalized Qualified Code(s): R10.84 - Generalized abdominal pain
--- NOTE | 2023-10-08 12:50 | Surgery Consultation ---
Date of Consultation October 08, 2023 Assessment & Plan (1) SBO (small bowel obstruction): 58-year-old male with partial small bowel obstruction versus developing enteritis. Even in [place] abdomens, most studies show that 70 to 80% of bowel obstructions related to adhesions. No indication for acute surgery. No acute surgical intervention indicated Admit to medicine service, appreciate their assistance with this patient Keep n.p.o., no indication for NG tube for now General surgery will follow, call with questions or concern (2) Tobacco use disorder: History of Present Illness History of Present Illness 58-year-old male presented to the emergency department with upper abdominal bloating and discomfort along with some nausea. He ate a cheeseburger last night and started having pain around 8:00. He had a bowel movement this morning but denies passing any flatus recently. No prior abdominal surgery or infection or trauma to his abdomen. He has had a colonoscopy in the past. Currently he still having some crampy discomfort and feels a little bloated. Symptoms are slightly better than the more last night. He is an active smoker, denies significant alcohol use Allergies Allergy/AdvReac Type Severity Reaction Status Date / Time No Known Allergies Allergy Verified 09/22/22 15:56 Home Medications Medication Instructions Recorded Confirmed Type atorvastatin 20 mg tablet 20 mg PO DAILY 09/22/22 09/22/22 History cyanocobalamin (vitamin B-12) 2,000 mcg PO DAILY 09/22/22 09/22/22 History 2,000 mcg tablet,extended release (Vitamin B-12 ER) levothyroxine 50 mcg tablet 50 mcg PO DAILYBB 09/22/22 09/22/22 History (Euthyrox) meloxicam 15 mg tablet 15 mg PO DAILY 09/22/22 09/22/22 History nicotine 7 mg/24 hr daily 7 mg topical DIRECTED PRN 09/22/22 09/22/22 History transdermal patch SMOKING SESSATION Patient History Medical History (Updated 10/08/23 @ 12:26 by Trevon Salcedo MD) HNP (herniated nucleus pulposus) Tobacco use disorder Surgical History No pertinent past surgical history Social History Smoking Status: Current every day smoker Tobacco Type: Cigarettes Preferred Language: Khmer Feels Safe at Home: Yes Review of Systems Review of Systems: All systems reviewed & are unremarkable except as noted in HPI & below Physical Exam Constitutional: WD/WN, vitals as above Respiratory: normal respiratory effort, lungs clear to auscultation Cardiovascular: RRR, no murmur, no edema Gastrointestinal (Abdomen): Inspection/Auscultation: + abdomen distended (Mild); no abdominal surgical scar Percussion/Palpation: + abdomen tender (Mild epigastric) and abdomen soft; no guarding, abdomen not rigid and no hernia Results & Data Vital Signs (Past 12 Hours) Vital Signs Temp Pulse Resp BP Pulse Ox O2 Del Method 10/08/23 12:17 81 12 135/85 95 Room Air 10/08/23 10:03 63 12 122/78 96 Room Air 10/08/23 09:03 64 12 96 Room Air 10/08/23 08:24 36.4 C L 74 20 132/75 99 Room Air Laboratory Results Laboratory Results - last 24 hr 10/08/23 10/08/23 08:48 10:47 WBC 9.17 RBC 4.71 Hgb 15.6 Hct 44.6 MCV 94.7 MCH 33.1 MCHC 35.0 RDW Std Deviation 43.2 RDW Coeff of Geraldine 12.2 Plt Count 187 MPV 9.4 Immature Gran % (Auto) 0.3 Neut % (Auto) 72.2 Lymph % (Auto) 18.9 [place] % (Auto) 6.8 Eos % (Auto) 1.3 Baso % (Auto) 0.5 Neut # (Auto) 6.62 H Lymph # (Auto) 1.73 [place] # (Auto) 0.62 H Eos # (Auto) 0.12 Baso # (Auto) 0.05 Immature Gran # (Auto) 0.03 Sodium 140 Potassium 4.4 Chloride 108 H Carbon Dioxide 28 Anion Gap 4 BUN 11 Creatinine 0.86 Est Cr Clr Drug Dosing 114.6 Est GFR ( Amer) 112.4 Est GFR (Non-Af Amer) 96.9 BUN/Creatinine Ratio 12.8 Glucose 122 H Calcium 9.6 Phosphorus Pending Magnesium Pending Total Bilirubin 0.7 AST 14 ALT 10 Alkaline Phosphatase 61 Troponin I High Sens 3.4 Total Protein 6.8 Albumin 3.9 Globulin 2.9 Albumin/Globulin Ratio 1.3 Lipase 15 Urine Color Yellow Urine Appearance Clear Urine pH 7.0 Ur Specific [place] 1.024 Urine Protein Negative Urine Glucose (UA) Negative Urine Ketones Negative Urine Blood Negative Urine Nitrite Negative Urine Bilirubin Negative Urine Urobilinogen Negative Ur Leukocyte Esterase Negative Diagnostic Findings Personally reviewed and interpreted the CT scan and agree with the assessment of dilated bowel with gentle tapering in the mid small bowel. This could represent a partial small bowel obstruction versus developing enteritis. CT abd pelvis IV con only CLINICAL HISTORY: abd pain TECHNIQUE: Helical axial images of the abdomen and pelvis were obtained and displayed. Automated dose lowering techniques and/or adjustment according to patient size were utilized for this exam. This exam was performed with intravenous contrast. CT DOSE: 1150.65 mGy.cm COMPARISON: Comparison is made to CT abdomen pelvis 09/22/2022 FINDINGS: Lower chest: Bibasilar atelectasis versus scarring is seen. Liver: Subcentimeter hypodensities in the liver are too small to characterize. Gallbladder and biliary tree: No calcified gallstones. Normal caliber wall. No intra- or extrahepatic biliary ductal dilation. Pancreas: Unremarkable, no focal lesions. Spleen: Splenule is incidentally noted. Adrenals: Unremarkable. Kidneys and ureters: Nonobstructive nephrolithiasis is seen. Bladder: Unremarkable. Reproductive organs: Prostatic calcifications are seen which may represent prior hemorrhage or granulomatous disease. Bowel: Diverticulosis is seen without diverticulitis. The appendix is normal. Multiple distended loops of jejunum measuring up to 38 mm in diameter. No sharp transition point is seen. The colon is not decompressed. Lymph nodes Retroperitoneal: Unremarkable. Pelvic: Unremarkable. Mesenteric: Unremarkable. Peritoneum: Normal. Vessels: Atherosclerotic calcifications are seen. Again noted is U-shaped configuration of the celiac axis without severe stenosis. Abdominal wall: Unremarkable. Bones: Unremarkable. IMPRESSION: 1. Findings are compatible with small bowel obstruction of the jejunum. No closed-loop obstruction is seen. 2. Diverticulosis without diverticulitis. PG Care Time/CCT Total # of Minutes Spent Total Time Spent with Patient: Total time spent is greater than 50% in coordination of care (as documented) at patient's floor/unit and/or counseling patient: Coding Level of Care Code 40871 OFFICE CONSULT LVL 02/12M Diagnoses SBO (small bowel obstruction) K56.609 Tobacco use disorder F17.200
[2023-10-08 12:59] LABS: Magnesium 2.2 mg/dl (1.7-2.4); Phosphorus 2.3 mg/dl (2.5-4.9)
--- NOTE | 2023-10-08 13:05 | Electrocardiogram Report ---
Test Reason : Blood Pressure : / mmHG Vent. Rate : 063 BPM Atrial Rate : 063 BPM P-R Int : 182 ms QRS Dur : 090 ms QT Int : 412 ms P-R-T Axes : 061 046 059 degrees QTc Int : 421 ms Normal sinus rhythm with sinus arrhythmia Normal ECG When compared with ECG of 22-SEP-2022 14:57, Incomplete right bundle branch block is no longer Present Confirmed by Billy Quijano ([id number]) on 10/08/2023 1:04:56 PM Referred By: REFERRED SELF Confirmed By:Billy Quijano
[2023-10-08] MEDS ORDERED: MoRPHine SULFATE 2 MG/ML CARP IV STA (13:09)
[2023-10-08] MEDS ORDERED: ACETAMINOPHEN 1,000 MG/100 ML VIAL IV PRN (13:28)
[2023-10-08] MEDS ORDERED: KETOROLAC TROMETHAMINE 15 MG/ML VIAL IV PRN (13:29)
[2023-10-08] MEDS ORDERED: MoRPHine SULFATE 2 MG/ML CARP IV PRN (13:29)
[2023-10-08 13:52] LABS: Thyroid Stimulating Hormone 5.377 uIu/ml (0.300-4.500)
[2023-10-08] MEDS: NICOTINE 14 MG/24 HR PATCH TD SCH (16:21)
[2023-10-08] MEDS: SODIUM CHLORIDE 0.9% 1,000 ML IV SCH (16:54)
[2023-10-08] MEDS ORDERED: ONDANSETRON INJ 2 MG/ML 2 ML VIAL IV PRN (19:49)
[2023-10-09] MEDS: SODIUM CHLORIDE 0.9% 1,000 ML IV SCH (04:47)
[2023-10-09] MEDS: LEVOTHYROXINE SODIUM 50 MCG TABLET PO SCH ×2 (04:47→08:17)
--- NOTE | 2023-10-09 06:14 | Surgery Progress Note ---
Date of Service October 09, 2023 Assessment & Plan (1) SBO (small bowel obstruction): Plan: Patient has been admitted on the hospitalist service. From surgical perspective we recommend the following: Continue intravenous fluids until oral intake can be advanced and is noted to be reliable Continue analgesics as needed Continue antiemetics as needed As patient has had a bowel movement may consider initiating sips of clear liquids with further diet advancement based on how he responds Check a.m. labs when available Admission and Anticipated Discharge Date Admission Date: October 08, 2023 Supervising Physician Co-Signing Physician Notes Patient seen and examined, labs reviewed, agree with above. 58-year-old male admitted with partial small bowel obstruction versus enteritis. He has had 2-3 loose bowel movements today. He is starting to feel hungry and the pain that he had upon admission is gone. On exam he is afebrile with stable vitals. His abdomen is soft, nontender, nondistended. Will advance to clear liquids and then slowly advance to low fiber from there. Possible discharge today or tomorrow depending upon his progress. Subjective Patient is currently resting comfortably in bed. He notes that since admission he has had a bowel movement. He denies any abdominal pain. He currently denies any nausea or vomiting. He denies any fevers, shakes, or chills. He notes despite having a bowel movement he does not have much in the way of an appetite but does feel thirsty. Physical Exam Gastrointestinal (Abdomen): Bowel sounds are present. Abdomen is soft, nonrigid, nondistended. There is minimal pain with palpation and there is no rebound tenderness or guarding Results & Data Vital Signs (Past 12 Hours) Vital Signs Temp Pulse Resp BP Pulse Ox O2 Del Method 10/08/23 20:11 Room Air 10/08/23 19:42 36.6 C 65 18 122/77 92 Room Air PG Care Time/CCT Total # of Minutes Spent Total Time Spent with Patient: Total time spent is greater than 50% in coordination of care (as documented) at patient's floor/unit and/or counseling patient: Coding Level of Care Code 72197 SUB INP/OBS CARE 12/10MIN Diagnoses SBO (small bowel obstruction) K56.609
[2023-10-09 06:42] LABS: Hematocrit (blood only) 41.3 % (42.0-52.0); Hemoglobin 14.3 g/dl (14.0-18.0); Mean Corpuscular Hemoglobin 32.6 pg (25.0-34.0); Mean Corpuscular Hgb Conc 34.6 g/dL (32.0-36.0); Mean Corpuscular Volume 94.1 fL (80.0-100.0); Mean Platelet Volume 9.4 fL (9.4-12.4); Platelet Count 176 K/uL (130-400); RDW Coefficient of Variation 12.2 % (11.5-14.5); RDW Standard Deviation 42.9 fL (36.4-46.3); Red Blood Count 4.39 M/uL (4.70-6.10); White Blood Count 9.16 K/ul (4.8-10.8)
[2023-10-09 07:03] LABS: BUN Creatinine Ratio 15.5 (10-20); Calcium 8.6 mg/dl (8.6-10.3); Creatinine Clr Calc Pharmacy 138.8 ml/min; Est GFR (African American) 121.6 ml/min; Est GFR (Non-African American) 104.9 ml/min; Phosphorus 2.6 mg/dl (2.5-4.9); Potassium 4.1 mmol/L (3.5-5.1)
[2023-10-09] MEDS: CYANOCOBALAMIN (B-12) 500 MCG TABLET PO SCH (07:44)
[2023-10-09] MEDS: NICOTINE 14 MG/24 HR PATCH TD SCH (07:44)
--- NOTE | 2023-10-09 08:04 | Hospitalist Progress Note ---
Date of Service October 09, 2023 Assessment & Plan (1) SBO (small bowel obstruction): (2) Abdominal pain: Plan: Pt presents with abdominal pain, nausea CT abd/pelvis 1. Findings are compatible with small bowel obstruction of the jejunum. No closed-loop obstruction is seen. 2. Diverticulosis without diverticulitis. Pt has no hx of abd. surgery Gen surgery discussed with ED - recommend admission Gen surgery consulted for further recommendations In ED pt received IV NS, IV toradol, and zofran Admit to med/surg Cont. to closely monitor NPO cont. IVF, monitor and replete electrolytes Pain control, antiemetics 10/09 Pt had 2 BMs (loose) - will send for pcr and c. fiff No more abd. pain and feels hungry. Surgery following -> advance diet to clear liquid Tobacco use d/o - nicotine patch Hypothyroidism - cont. home levothyroxine HLD - resume home statin when able to take PO Atherosclerosis home ASA Admission and Anticipated Discharge Date Admission Date: October 08, 2023 Subjective Pt seen in follow up of SBP Had BM overnight (very loose stool), also nausea overnight Now feels much better, denies abd. pain, feels hungry. Already started on ice chips this AM and has no nausea when having those. No fever, chills, chest pain, shortness of breath. Surgery following and plan to advance to clear liquid diet. Review of Systems Review of Systems: All systems reviewed & are unremarkable except as noted in Subjective Physical Exam Physical Exam: Constitutional: WD/WN, vitals as a chiquis Eyes: PERRL, EOMI, conju nctivae normal, an icteric sclerae ENMT: external ear and n ose normal, oropha rynx normal Neck: trachea midline Respiratory: normal respiratory effort, lungs selin ar to auscultation Cardiovascular: RRR, no murmur, no edema Chest (Breasts): Chest: normal insp ection of chest Gastrointestinal ( Abdomen): Inspection/Auscult ation: abdomen nor mal to inspection Percussion/Palpat ion: + abdomen onl y mildly tender (r ight upper and low er quadrant - much improved from pre vious exam) and ab domen soft; no gua rding and abdomen not rigid Musculoskeletal: extremities motor strength 5/5 Skin: no rashes, warm an d dry Neurologic: PERRL, EOMI, no fa ce palsy, no dysar thria, moves extre mities Results & Data Results & Data Vital Signs (Past 12 Hours) Vital Signs Temp Pulse Resp BP Pulse Ox O2 Del Method 10/09/23 07:21 36.8 C 68 15 102/67 95 Room Air 10/08/23 20:11 Room Air Laboratory Results 10/09/23 10/08/23 10/08/23 Range/Units 06:09 10:47 08:48 WBC 9.16 9.17 (4.8-10.8) K/ul RBC 4.39 L 4.71 (4.70-6.10) M/uL Hgb 14.3 15.6 (14.0-18.0) g/dl Hct 41.3 L 44.6 (42.0-52.0) % MCV 94.1 94.7 (80.0-100.0) fL MCH 32.6 33.1 (25.0-34.0) pg MCHC 34.6 35.0 (32.0-36.0) g/dL RDW Std Deviation 42.9 43.2 (36.4-46.3) fL RDW Coeff of Geraldine 12.2 12.2 (11.5-14.5) % Plt Count 176 187 (130-400) K/uL MPV 9.4 9.4 (9.4-12.4) fL Immature Gran % (Auto) 0.3 % Neut % (Auto) 72.2 % Lymph % (Auto) 18.9 % [place] % (Auto) 6.8 % Eos % (Auto) 1.3 % Baso % (Auto) 0.5 % Neut # (Auto) 6.62 H (1.40-6.50) K/uL Lymph # (Auto) 1.73 (1.20-3.40) K/uL [place] # (Auto) 0.62 H (0.11-0.59) K/uL Eos # (Auto) 0.12 (0.00-0.50) K/uL Baso # (Auto) 0.05 (0.00-0.20) K/uL Immature Gran # (Auto) 0.03 (0.01-0.20) K/uL Sodium 139 140 (136-145) mmol/L Potassium 4.1 4.4 (3.5-5.1) mmol/L Chloride 111 H 108 H (98-107) mmol/L Carbon Dioxide 24 28 (21-32) mmol/L Anion Gap 4 4 (3-11) BUN 11 11 (6-23) mg/dl Creatinine 0.71 0.86 (0.6-1.4) mg/dl Est Cr Clr Drug Dosing 138.8 114.6 ml/min Est GFR ( Amer) 121.6 112.4 ml/min Est GFR (Non-Af Amer) 104.9 96.9 ml/min BUN/Creatinine Ratio 15.5 12.8 (10-20) Glucose 93 122 H (70-99(Fasting)) mg/dl Calcium 8.6 9.6 (8.6-10.3) mg/dl Phosphorus 2.6 2.3 L (2.5-4.9) mg/dl Magnesium 2.0 2.2 (1.7-2.4) mg/dl Total Bilirubin 0.7 (0.2-1.0) mg/dl AST 14 (13-39) U/L ALT 10 (7-52) U/L Alkaline Phosphatase 61 (34-104) U/L Troponin I High Sens 3.4 (0-20) pg/ml Total Protein 6.8 (6.0-8.3) gm/dl Albumin 3.9 (3.4-5.0) gm/dl Globulin 2.9 (2.5-4.0) gm/dl Albumin/Globulin Ratio 1.3 (0.9-2) Lipase 15 (11-82) U/L TSH 5.377 H (0.300-4.500) uIu/ml Urine Color Yellow Urine Appearance Clear (Clear) Urine pH 7.0 (4.5-7.5) Ur Specific [place] 1.024 (1.000-1.030) Urine Protein Negative (Negative) Urine Glucose (UA) Negative (Negative) Urine Ketones Negative (Negative) Urine Blood Negative (Negative) Urine Nitrite Negative (Negative) Urine Bilirubin Negative (Negative) Urine Urobilinogen Negative (Negative) Ur Leukocyte Esterase Negative (Negative) Medications Administered Current Inpatient Medications Cyanocobalamin (Cyanocobalamin (B-12) 500 Mcg Tablet) 2,000 mcg PO DAILY MICHELINE Stop: 11/08/23 08:59 Last Admin: 10/09/23 07:44 Dose: Not Given Acetaminophen (Ofirmev) 1,000 mg in 100 mls @ 400 mls/hr IV Q8H PRN PRN Reason: Pain Stop: 10/11/23 13:27 Sodium Chloride (Nss) 1,000 mls @ 80 mls/hr IV .[id number] [facility] Stop: 11/07/23 16:44 Last Admin: 10/09/23 04:47 Dose: 80 mls/hr Ketorolac Tromethamine (Ketorolac Tromethamine 15 Mg/Ml Vial) 15 mg IV Q6H PRN PRN Reason: Pain Stop: 10/13/23 13:28 Levothyroxine Sodium (Levothyroxine Sodium 50 Mcg Tablet) 50 mcg PO DAILYBB [facility] Stop: 11/08/23 06:29 Last Admin: 10/09/23 04:47 Dose: Not Given Miscellaneous (Remove Nicoderm Patch) 1 each N/A DAILY@0859 [facility] Stop: 11/08/23 08:58 Last Admin: 10/09/23 07:44 Dose: Not Given Morphine Sulfate (Morphine Sulfate 2 Mg/Ml Carp) 2 mg IV Q4H PRN PRN Reason: Pain Stop: 10/22/23 13:28 Last Admin: 10/08/23 19:53 Dose: 2 mg Nicotine (Nicotine 14 Mg/24 Hr Patch) 14 mg TD QAM [facility] Stop: 11/07/23 15:59 Last Admin: 10/09/23 07:44 Dose: Not Given Ondansetron HCl (Ondansetron Inj 2 Mg/Ml 2 Ml Vial) 4 mg IV Q6H PRN PRN Reason: Nausea And Vomiting Stop: 11/07/23 19:48 Last Admin: 10/08/23 19:53 Dose: 4 mg (2) Abdominal pain Abdominal location: generalized Qualified Code(s): R10.84 - Generalized abdominal pain
[2023-10-09 15:55] LABS: Adenovirus F 40/41 PCR Not Detected (NotDetected); Astrovirus PCR Not Detected (NotDetected); Campylobacter PCR Not Detected (NotDetected); Cryptosporidium PCR Not Detected (NotDetected); Cyclospora cayetanensis PCR Not Detected (NotDetected); Entamoeba histolytica PCR Not Detected (NotDetected); Enteroaggregative E.coli(EAEC) Not Detected (NotDetected); Enterotoxigenic E.coli (ETEC) Not Detected (NotDetected); Giardia lamblia PCR Not Detected (NotDetected); Norovirus GI/GII PCR Not Detected (NotDetected); Plesiomonas shigelloides PCR Not Detected (NotDetected); Rotavirus A PCR Not Detected (NotDetected); Salmonella PCR Not Detected (NotDetected); Sapovirus PCR Not Detected (NotDetected); Shiga-like Toxin E.coli (STEC) Not Detected (NotDetected); Shigella/Enteroinvasive E.coli Not Detected (NotDetected); Vibrio cholerae PCR Not Detected (NotDetected); Vibrio species PCR Not Detected (NotDetected); Yersinia enterocolitica PCR Not Detected (NotDetected)
[2023-10-09 16:12] LABS: Enteropathogenic E.coli (EPEC) DETECTED (NotDetected)
[2023-10-09] MEDS: ADVANCED PROBIOTIC 1250 MG CAPSULE PO SCH (17:06)
[2023-10-09] MEDS: CIPROFLOXACIN 500 MG TAB PO SCH (19:57)
--- NOTE | 2023-10-10 05:53 | Surgery Progress Note ---
Date of Service October 10, 2023 Assessment & Plan (1) SBO (small bowel obstruction): Plan: Patient has been admitted on the hospitalist service. From surgical perspective we recommend the following: Continue diet as tolerated Once diet can be advanced to solid foods and this is tolerated consideration be given to discharge home No need for acute surgical intervention Check a.m. labs when available Admission and Anticipated Discharge Date Admission Date: October 08, 2023 Supervising Physician Co-Signing Physician Notes Patient seen and examined, agree with above. Admitted with possible partial SBO versus enteritis, at this point it looks more consistent with an enteritis. He is tolerating his diet and is having loose bowel movements. Abdomen soft, nondistended, nontender. Okay to DC to home from general surgery standpoint, no need for any follow-up, surgery will sign off, call with questions or concerns. Subjective Patient reports an uneventful night. He has had his diet advanced to full liquids which he is tolerating without nausea or vomiting or worsening abdominal pain. He notes that he continues to move his bowels. Physical Exam Gastrointestinal (Abdomen): Bowel sounds are present. Abdomen is soft and nondistended. There is no pain with palpation. Results & Data Vital Signs (Past 12 Hours) Vital Signs Temp Pulse Resp BP Pulse Ox O2 Del Method 10/09/23 19:38 Room Air 10/09/23 19:29 36.8 C 61 18 102/54 L 95 Room Air PG Care Time/CCT Total # of Minutes Spent Total Time Spent with Patient: Total time spent is greater than 50% in coordination of care (as documented) at patient's floor/unit and/or counseling patient: Coding Level of Care Code 57444 SUB INP/OBS CARE 12/10MIN Diagnoses SBO (small bowel obstruction) K56.609
[2023-10-10] MEDS: CYANOCOBALAMIN (B-12) 500 MCG TABLET PO SCH (07:50)
[2023-10-10] MEDS: NICOTINE 14 MG/24 HR PATCH TD SCH (07:50)
[2023-10-10] MEDS: ADVANCED PROBIOTIC 1250 MG CAPSULE PO SCH (07:50)
[2023-10-10] MEDS: CIPROFLOXACIN 500 MG TAB PO SCH (07:51)
[2023-10-10 09:38] LABS: Hematocrit (blood only) 43.6 % (42.0-52.0); Hemoglobin 15.1 g/dl (14.0-18.0); Mean Corpuscular Hemoglobin 32.7 pg (25.0-34.0); Mean Corpuscular Hgb Conc 34.6 g/dL (32.0-36.0); Mean Corpuscular Volume 94.4 fL (80.0-100.0); Mean Platelet Volume 9.4 fL (9.4-12.4); Platelet Count 182 K/uL (130-400); RDW Coefficient of Variation 12.4 % (11.5-14.5); RDW Standard Deviation 42.9 fL (36.4-46.3); Red Blood Count 4.62 M/uL (4.70-6.10); White Blood Count 6.19 K/ul (4.8-10.8)
[2023-10-10 09:55] LABS: BUN Creatinine Ratio 8.4 (10-20); Calcium 9.2 mg/dl (8.6-10.3); Creatinine Clr Calc Pharmacy 118.8 ml/min; Est GFR (Non-African American) 98.4 ml/min; Magnesium 2.1 mg/dl (1.7-2.4); Phosphorus 2.8 mg/dl (2.5-4.9); Potassium 4.2 mmol/L (3.5-5.1)
--- NOTE | 2023-10-10 10:57 | Discharge Summary ---
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 Reports that he felt well yesterday, last meal had around 8 PM when he had a cheeseburger and fries. He reports feeling well after dinner. He woke up however with abdominal pain and nausea this morning. He went to the bathroom and had a normal bowel movement this morning. However he did not feel any better, and continued to have sharp abdominal pain, central right upper and lower quadrants. Denies any vomiting. Denies any diarrhea, or blood in the stool. In the ED, patient was found to have possible small bowel obstruction and ED provider discussed with general surgery. They recommend medical management for now. Patient is a current smoker, smokes about a pack a day, denies any alcohol use. Patient denies having any surgeries in the past. Denies any fevers chills chest pain shortness of breath. Family history -father with heart disease, brother with diabetes. Both parents are still alive. Admission Exam Per Admitting Provider Constitutional: WD/WN, vitals as above Eyes: PERRL, conjunctivae normal, anicteric sclerae ENMT: external ear and nose normal, oropharynx normal Neck: trachea midline Respiratory: normal respiratory effort, lungs clear to auscultation Cardiovascular: RRR, no murmur, no edema Chest (Breasts): Chest: normal inspection of chest Gastrointestinal (Abdomen): Inspection/Auscultation: abdomen normal to inspection Percussion/Palpation: + abdomen tender (right upper and lower quadrant) and abdomen soft; no guarding and abdomen not rigid Musculoskeletal: no cyanosis or clubbing, extremities motor strength 5/5 Skin: no rashes, warm and dry Neurologic: PERRL, EOMI, accommodation nl, no face palsy, no dysarthria Principal Diagnosis Small bowel obstruction d/t enteritis Discharge Exam Constitutional: WD/WN, vitals as above Eyes: PERRL, EOMI, conjunctivae normal, anicteric sclerae ENMT: external ear and nose normal, oropharynx normal Neck: trachea midline Respiratory: normal respiratory effort, lungs clear to auscultation Cardiovascular: RRR, no murmur, no edema Chest (Breasts): Chest: normal inspection of chest Gastrointestinal (Abdomen): Inspection/Auscultation: abdomen normal to inspection Percussion/Palpation: abdomen non tender (resolved) and abdomen soft; no guarding and abdomen not rigid Musculoskeletal: extremities motor strength 5/5 Skin: no rashes, warm and dry Neurologic: PERRL, EOMI, no face palsy, no dysarthria, moves extremities Discharge Data Allergies Allergy/AdvReac Type Severity Reaction Status Date / Time No Known Allergies Allergy Verified 10/08/23 12:57 Consultations 10/08/23 12:38 ED Decision to Admit Stat 10/08/23 12:40 Consult General Surgery Routine Ordered Studies 10/08/23 08:38 CT abd pelvis IV con only Stat FINDINGS: Lower chest: Bibasilar atelectasis versus scarring is seen. Liver: Subcentimeter hypodensities in the liver are too small to characterize. Gallbladder and biliary tree: No calcified gallstones. Normal caliber wall. No intra- or extrahepatic biliary ductal dilation. Pancreas: Unremarkable, no focal lesions. Spleen: Splenule is incidentally noted. Adrenals: Unremarkable. Kidneys and ureters: Nonobstructive nephrolithiasis is seen. Bladder: Unremarkable. Reproductive organs: Prostatic calcifications are seen which may represent prior hemorrhage or granulomatous disease. Bowel: Diverticulosis is seen without diverticulitis. The appendix is normal. Multiple distended loops of jejunum measuring up to 38 mm in diameter. No sharp transition point is seen. The colon is not decompressed. Lymph nodes Retroperitoneal: Unremarkable. Pelvic: Unremarkable. Mesenteric: Unremarkable. Peritoneum: Normal. Vessels: Atherosclerotic calcifications are seen. Again noted is U-shaped configuration of the celiac axis without severe stenosis. Abdominal wall: Unremarkable. Bones: Unremarkable. IMPRESSION: 1. Findings are compatible with small bowel obstruction of the jejunum. No closed-loop obstruction is seen. 2. Diverticulosis without diverticulitis. Hospital Course (1) SBO (small bowel obstruction): (2) Abdominal pain: Pt presents with abdominal pain, nausea CT abd/pelvis 1. Findings are compatible with small bowel obstruction of the jejunum. No closed-loop obstruction is seen. 2. Diverticulosis without diverticulitis. Pt has no hx of abd. surgery Gen surgery consulted for further recommendations In ED pt received IV NS, IV toradol, and zofran cont. IVF, monitor and replete electrolytes Pain control, antiemetics 10/09 Pt had 2 BMs (loose) - will send for pcr and c. fiff No more abd. pain and feels hungry. Surgery following -> advance diet to clear liquid 10/10 stool PCR positive for E. coli (EPEC) - started on ciprofloxacin Pt is feeling well, tolerating diet, and denies any abd. pain. Tobacco use d/o - nicotine patch Hypothyroidism - cont. home levothyroxine HLD - resume home statin Atherosclerosis home ASA Total Time Total Time Spent Total Time Spent (In Minutes): 40 Discharge Plan Discharge Items Patient Disposition: Home - Self-Care Reason For Visit: SBO Discharge Diagnosis: Small bowel obstruction d/t enteritis Activity: Per Instructions section Non-emergency contact: Primary Care Provider Call non-emergency contact if: you have any medication questions and your symptoms worsen Follow-up/Referrals: Vashti Hopkins MD [Primary Care Provider] - Diet: Low Fiber Addtl Attending Provider Instructions: Follow up with primary care physician within 1 week. Slowly advance your diet. Recommend low fiber diet for now. Finish antibiotic treatment as prescribed. Pending Studies at Discharge: No Stand-Alone Forms: My [facility] [employer], Smoking Cessation Medications and DC Order Prescriptions: New Advanced Probiotic 625 mg (10 billion cell) Capsule 2 cap PO DAILY 5 Days Qty: 10 0RF ciprofloxacin HCl 500 mg Tablet 500 mg PO BID 3 Days Qty: 6 0RF Continued atorvastatin 20 mg tablet 20 mg PO DAILY Rx Instructions: LAST FILLED 05/09/22 FOR 30 DAYS/30 TABS. meloxicam 15 mg tablet 15 mg PO DAILY Rx Instructions: LAST FILLED 06/10/22 FOR 30 DAYS/30 TABS. levothyroxine [Euthyrox] 50 mcg tablet 50 mcg PO DAILYBB Rx Instructions: LAST FILLED 03/30/22 FOR 30 DAYS/30 TABS. cyanocobalamin (vitamin B-12) [Vitamin B-12] 2,000 mcg Tablet Extended Release 2,000 mcg PO DAILY Rx Instructions: OTC nicotine 7 mg/24 hr patch 24 hour 7 mg topical DIRECTED PRN (Reason: SMOKING SESSATION) Rx Instructions: [facility]--REPORTS NOT TAKING. Discharge Orders: Discharge Order (Routine); Ordered 10/10/23 Ordered By: Kade Maharaj Admission Data Admit Date/Time: 10/08/23 12:40 Attending Provider: Kade Maharaj Admit Provider: Kade Maharaj Primary Care Provider: Vashti Hopkins Other Providers: Kade Maharaj; Harman Rocha
== END 2023-10-10 11:20 | disposition home or self-care (01) ==
LOC: ED 08:22 → INTOOBSV 12:40 → 3E 12:40